=== PATIENT | male | born 1960 | race Caucasian/White ===

== ENCOUNTER 2016-10-07 13:22 | Emergency (ER) | payer MEDICARE, MEDICAID | END 2016-10-07 17:23 | disposition home or self-care (01) | LOC: D.ER 13:22 | DX: M25.572 Pain in left ankle and joints of left foot (principal); I10 Essential (primary) hypertension; E11.9 Type 2 diabetes mellitus without complications; Z79.4 Long term (current) use of insulin ==

== ENCOUNTER 2018-08-31 19:12 | Emergency (ER) | payer MEDICARE, MEDICAID ==
[2018-08-31 19:49] VITALS: BMI 23.5
[2018-08-31] MEDS ORDERED: NOVOLOG100 UNIT/1 SC (19:50)
[2018-08-31] MEDS ORDERED: VASOTEC10 MG PO (19:51)
[2018-08-31] MEDS ORDERED: LIPITOR40 MG PO (19:51)
[2018-08-31] MEDS ORDERED: PREDNISONE20 MG PO (22:29)
[2018-08-31 22:47] VITALS: BP 154/75
== END 2018-08-31 22:49 | disposition home or self-care (01) ==
LOC: D.ER 19:12
DX: M25.511 Pain in right shoulder (principal); W18.30XA Fall on same level, unspecified, initial encounter; Y93.89 Activity, other specified; Y92.019 Unspecified place in single-family (private) house as the place of occurrence of the external cause

== ENCOUNTER 2020-07-16 18:36 | Emergency (ER) | payer MEDICARE, MEDICAID ==
[~2020-07-16] VITALS: Ht 177.8 cm; Wt 75.9 kg
[~2020-07-16 18:36] MED LIST: LIPITOR40 MG PO; NOVOLOG100 UNIT/1 SC; PREDNISONE20 MG PO; VASOTEC10 MG PO
[2020-07-16 18:56] VITALS: Ht 177.8 cm; Wt 75.9 kg
[2020-07-16 19:55] VITALS: BP 131/70
== END 2020-07-16 19:55 | disposition home or self-care (01) ==
LOC: D.ER 18:36
DX: S01.112A Laceration without foreign body of left eyelid and periocular area, initial encounter (principal); E11.9 Type 2 diabetes mellitus without complications; I10 Essential (primary) hypertension; E78.5 Hyperlipidemia, unspecified; Z79.4 Long term (current) use of insulin; W01.190A Fall on same level from slipping, tripping and stumbling with subsequent striking against furniture, initial encounter; Y93.9 Activity, unspecified; Y92.9 Unspecified place or not applicable

== ENCOUNTER 2020-07-21 21:10 | Inpatient (IN) | payer MEDICARE, MEDICAID ==
[~2020-07-21] VITALS: Ht 177.8 cm; Wt 75.0 kg
[2020-07-21 22:30] VITALS: BP 156/65
[2020-07-21 23:30] VITALS: BP 135/62
[2020-07-22] VITALS (7 sets, daily range): BP systolic 104–139; BP diastolic 63–78; Ht 177.8 cm; Wt 75.0 kg
--- NOTE | 2020-07-22 00:18 | NUR ---
PT TO ROOM 2110 VIA STRETCHER ACCOMPANIED BY HOSPITAL STAFF.
[2020-07-22] MEDS ORDERED: HYDROCODON-ACE1 EAC7 PO (01:01)
[2020-07-22] MEDS ORDERED: VALIUM5 MG PO (01:02)
[2020-07-22 06:17] LABS: BASOPHILS 0.3 % (0-2); EOSINOPHILS 3.9 % (0-7); HEMATOCRIT 42.5 % (42.0-54.0); HEMOGLOBIN 13.6 g/dL (13.5-17.5); LYMPHOCYTE ABS# 1.19 10x3/uL (1.32-3.57); LYMPHOCYTES 18.8 % (15-50); MCH 29.1 pg (26.0-34.0); MCV 90.8 fL (80.0-100.0); MEAN PLATELET VOLUME 10.5 fL (7.4-10.4); PLATELET COUNT 252 10x3/uL (130-400); RBC 4.68 10x6/uL (4.20-6.10); RDW 13.2 % (11.5-14.5); WBC 6.3 10x3/uL (4.8-10.8)
[2020-07-22 06:37] LABS: ALBUMIN 3.3 g/dL (3.4-5.0); ALKALINE PHOSPHATASE 134 U/L (30-120); ALT (SGPT) 15 U/L (10-68); BILIRUBIN - TOTAL 0.41 mg/dL (0.2-1.3); CALC OSMOLALITY 282 mosm/kg (275-300); CARBON DIOXIDE 29.2 mmol/L (21.0-32.0); CHLORIDE - SERUM 106 mmol/L (98-107); GLUCOSE 97 mg/dL (74-106); PHOSPHOROUS 3.2 mg/dL (2.5-4.9); POTASSIUM - SERUM 3.4 mmol/L (3.5-5.1); PROTEIN - SERUM 6.5 g/dL (6.4-8.2); SODIUM 142 mmol/L (136-145); UREA NITROGEN 12 mg/dL (7-18); eGFR NON AFRICAN AMERICAN 81 mL/min (90-120)
[2020-07-22 06:45] LABS: APTT 33.2 SECONDS (22.8-39.4)
--- NOTE | 2020-07-22 07:10 | NUR ---
REC'D N BED WITH EYES CLOSED EASILY TO AROUSED WHEN NAME IS CALLED. RESP EVEN AND UNLABORED WITH NO DISTRESS NOTED. CAN EXPRESS NEEDS AND WANTS. NO C/O NOTED OR VOICED. ASSESSMENT COMPLETED. C/L IN REACH AT BEDSIDE.
[2020-07-22 07:33] LABS: INR 1.15 (0.85-1.17); PROTIME 13.6 SECONDS (11.6-15.0)
--- NOTE | 2020-07-22 09:47 | NUR ---
WAS MEDICATION WITH MORPHINE FOR C/O PAIN RATING 8/10 ON PAIN SCALE . C/L IN REACH AT BEDSIDE.
--- NOTE | 2020-07-22 11:46 | NUR ---
I have reviewed this patient and I concur with the Shift Assessment completed by the Licensed Practical Nurse today this shift.
--- NOTE | 2020-07-22 15:09 | NUR ---
C/O LEFT HIP PAIN RATING 7/10 ON PAIN SCALE WAS MEDICATED WITH MORPHINE PER ORDERS. C/L IN REACH AT BEDSIDE.
[2020-07-23 00:51] VITALS: BP 111/64
[2020-07-23 05:22] VITALS: BP 128/71
[2020-07-23 06:19] LABS: BASOPHILS 0.4 % (0-2); EOSINOPHILS 5.4 % (0-7); HEMATOCRIT 40.2 % (42.0-54.0); HEMOGLOBIN 12.7 g/dL (13.5-17.5); IMMATURE GRANULOCYTES 0.2 % (0-5); LYMPHOCYTES 16.8 % (15-50); MCH 29.1 pg (26.0-34.0); MCHC 31.6 g/dL (31.0-37.0); MCV 92.2 fL (80.0-100.0); MEAN PLATELET VOLUME 10.8 fL (7.4-10.4); MONOCYTES 9.2 % (2-11); NEUTROPHIL ABS# 3.64 10x3/uL (1.78-5.38); PLATELET COUNT 256 10x3/uL (130-400); RBC 4.36 10x6/uL (4.20-6.10); RDW 13.2 % (11.5-14.5); WBC 5.4 10x3/uL (4.8-10.8)
[2020-07-23 07:10] LABS: ALBUMIN 2.8 g/dL (3.4-5.0); ANION GAP 10.4 mmol/L (8-16); BILIRUBIN - TOTAL 0.41 mg/dL (0.2-1.3); CALCIUM 8.3 mg/dL (8.5-10.1); CARBON DIOXIDE 27.9 mmol/L (21.0-32.0); CREATININE - SERUM 1.1 mg/dL (0.6-1.3); MAGNESIUM - SERUM 1.9 mg/dL (1.8-2.4); PHOSPHOROUS 2.7 mg/dL (2.5-4.9); PROTEIN - SERUM 5.9 g/dL (6.4-8.2)
[2020-07-23 07:19] LABS: POTASSIUM - SERUM 4.3 mmol/L (3.5-5.1)
[2020-07-23 09:09] VITALS: BP 127/68
[2020-07-23 12:17] VITALS: BP 122/65
[2020-07-23 16:33] VITALS: BP 125/73
[2020-07-23 20:59] VITALS: BP 124/72
[2020-07-24 04:13] VITALS: BP 115/64
[2020-07-24 07:07] LABS: BASOPHILS 0.9 % (0-2); HEMATOCRIT 40.3 % (42.0-54.0); HEMOGLOBIN 13.1 g/dL (13.5-17.5); IMMATURE GRANULOCYTES 0.2 % (0-5); LYMPHOCYTE ABS# 1.09 10x3/uL (1.32-3.57); LYMPHOCYTES 19.5 % (15-50); MCH 29.3 pg (26.0-34.0); MCHC 32.5 g/dL (31.0-37.0); MEAN PLATELET VOLUME 10.8 fL (7.4-10.4); MONOCYTES 10.8 % (2-11); NEUTROPHIL ABS# 3.44 10x3/uL (1.78-5.38); NEUTROPHILS 61.6 % (40-80); PLATELET COUNT 253 10x3/uL (130-400); RBC 4.47 10x6/uL (4.20-6.10); WBC 5.6 10x3/uL (4.8-10.8)
[2020-07-24 07:12] LABS: MCV 90.2 fL (80.0-100.0)
[2020-07-24 07:39] LABS: ALKALINE PHOSPHATASE 126 U/L (30-120); ALT (SGPT) 15 U/L (10-68); BILIRUBIN - TOTAL 0.39 mg/dL (0.2-1.3); CALC OSMOLALITY 280 mosm/kg (275-300); CALCIUM 8.6 mg/dL (8.5-10.1); CARBON DIOXIDE 24.8 mmol/L (21.0-32.0); CHLORIDE - SERUM 105 mmol/L (98-107); CREATININE - SERUM 0.9 mg/dL (0.6-1.3); GLUCOSE 129 mg/dL (74-106); PHOSPHOROUS 3.4 mg/dL (2.5-4.9); POTASSIUM - SERUM 4.1 mmol/L (3.5-5.1); PROTEIN - SERUM 5.8 g/dL (6.4-8.2); SODIUM 139 mmol/L (136-145); UREA NITROGEN 14 mg/dL (7-18); eGFR NON AFRICAN AMERICAN > 90 mL/min (90-120)
[2020-07-24 09:19] VITALS: BP 136/76
--- NOTE | 2020-07-24 15:05 | NUR ---
PT'S DISCHARGE INSTRUCTIONS REVIEWED AND SIGNED. IV OUT. TO ROOM FOR BELONGINGS AND TRANSPORT.
== END 2020-07-24 15:06 | disposition home or self-care (01) | DRG 563 ==
LOC: D.ER 21:10 → D.M2 23:16
PROVIDERS: Family Medicine; ADMIT Emergency Medicine; ATTEND Emergency Medicine
DX: S82.302A Unspecified fracture of lower end of left tibia, initial encounter for closed fracture (principal); S82.492A Other fracture of shaft of left fibula, initial encounter for closed fracture; W19.XXXA Unspecified fall, initial encounter; E11.65 Type 2 diabetes mellitus with hyperglycemia; E78.5 Hyperlipidemia, unspecified; Z79.4 Long term (current) use of insulin